=== PATIENT | female | born 1965 | race African-American/Black ===

== ENCOUNTER 2017-08-03 19:49 | Emergency (ER) | payer OTHER ==
[~2017-08-03] VITALS: Ht 160 cm; Wt 88.0 kg
[~2017-08-03 19:49] MED LIST: ATEN1TAB73; CYCL5TAB PO; ENAL2.5 PO; NAPR-576 PO; TOPR25TA2 PO
[2017-08-03] MEDS ORDERED: IOHEXOL 350 MG/ML 10 ML VIAL (for RAD DIAG) IVCONTRAST ONE (19:50)
[2017-08-03 19:51] VITALS: BP 176/94; PULSE 55; RESP 16; TEMP 98.6; O2SAT 98
[2017-08-03] MEDS ORDERED: SODIUM CHLORIDE 0.9% FLUSH 10 ML FLUSH IVF PRN (22:45)
[2017-08-03 22:56] VITALS: RESP 20; O2SAT 99
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
[2017-08-03 23:27] LABS: AUTOMATED NEUTROPHIL # 3.6 TH/MM3 (1.8-7.7); BASOPHIL # 0.1 TH/MM3 (0-0.2); BASOPHIL % 1.4 % (0.0-2.0); EOSINOPHIL # 0.5 TH/MM3 (0-0.4); EOSINOPHIL % 6.8 % (0.0-4.0); HEMATOCRIT 40.2 % (35.0-46.0); HEMO FLAGS DIFF FINAL; LYMPH % 33.7 % (9.0-44.0); LYMPHOCYTE # 2.4 TH/MM3 (1.0-4.8); MEAN CELL VOLUME 84.4 FL (80.0-100.0); MEAN CORPUSCULAR HEMOGLOBIN 28.3 PG (27.0-34.0); MEAN CORPUSCULAR HGB CONC 33.6 % (32.0-36.0); MONO % 6.4 % (0.0-8.0); NEUT % 51.7 % (16.0-70.0); PLATELET COUNT 231 TH/MM3 (150-450); RED BLOOD COUNT 4.77 MIL/MM3 (4.00-5.30); RED CELL DISTRIBUTION WIDTH 13.8 % (11.6-17.2)
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
[2017-08-03 23:42] LABS: POTASSIUM 4.1 MEQ/L (3.5-5.1)
[2017-08-03 23:59] LABS: APTT (PATIENT) 27.3 SEC (24.3-30.1); PROTHROMBIN TIME - PATIENT 11.1 SEC (9.8-11.6)
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
[2017-08-04] MEDS ORDERED: IBUPROFEN 600 MG TAB PO ONE (01:30)
== END 2017-08-04 01:49 | disposition home or self-care (01) ==
LOC: NEPD 19:49
DX: S80.01XA Contusion of right knee, initial encounter (principal); S39.012A Strain of muscle, fascia and tendon of lower back, initial encounter; D32.0 Benign neoplasm of cerebral meninges; M54.2 Cervicalgia; V89.2XXA Person injured in unspecified motor-vehicle accident, traffic, initial encounter; Y92.488 Other paved roadways as the place of occurrence of the external cause
CPT/HCPCS: 70450; 71260; 72125; 72128; 72131; 73564; 74177; 80048; 85025; 85610; 85730; 99285; Q9967